=== PATIENT | male | born 1980 | race Caucasian/White ===

== ENCOUNTER 2017-10-26 15:09 | Emergency (ER) | payer OTHER ==
[~2017-10-26] VITALS: Ht 177.8 cm; Wt 105.0 kg
[~2017-10-26 15:09] MED LIST: GLUCOSAMINE &1 EAC1 PO; MELOXICAM7.5 MG PO
[2017-10-26 16:29] LABS: HEMATOCRIT 45.5 % (38.0-50.0); HEMOGLOBIN 16.5 G/DL (12.5-16.6); MCH 32.4 PG (29.0-34.0); MCHC 36.3 G/DL (30.0-36.0); MCV 89.2 FL (86-99); PLATELET COUNT 229 K/uL (156-360); RBC DIS.WIDTH-CV 11.9 % (11.8-14.6); RBC DIS.WIDTH-SD 39.1 % (39-53); WHITE BLOOD COUNT 5.5 K/uL (4.1-10.2)
[2017-10-26 16:40] LABS: ALBUMIN 4.6 g/dL (3.2-4.8); CHLORIDE 108 mEq/L (99-109); POTASSIUM 3.5 mEq/L (3.7-5.4); SODIUM 138 mEq/L (136-147)
[2017-10-26 16:42] LABS: GLUCOSE 131 mg/dL (70-99); TOTAL PROTEIN 7.3 g/dL (6.4-8.3)
[2017-10-26 16:44] LABS: TOTAL BILIRUBIN 0.9 mg/dL (0.0-1.0)
[2017-10-26 16:46] LABS: ALKALINE PHOSPHATASE 58 IU/L (3-129); GFR ESTIMATE (CALCULATED) > 59 mL/min/ (58.99-99999)
[2017-10-26 16:47] LABS: UREA NITROGEN (BUN) 14 mg/dL (9-23)
[2017-10-26 16:48] LABS: AST (GOT) 18 IU/L (2-34)
[2017-10-26 16:49] LABS: ALT (GPT) 29 IU/L (3-49)
[2017-10-26] MEDS ORDERED: ZOFRAN ODT8 MG PO (19:06)
[2017-10-26 19:10] LABS: APPEARANCE SL.HAZY ((CLEAR)); BILIRUBIN NEGATIVE; BLOOD NEGATIVE; COLOR YELLOW ((YELLOW)); GLUCOSE (STRIP) NEGATIVE; KETONES NEGATIVE; LEUKOCYTES NEGATIVE; NITRITE NEGATIVE; PROTEIN (STRIP) 30; SPECIFIC GRAVITY 1.033 (1.000-1.030); UROBILINOGEN 0.2 MG/DL (0.2-1.0)
[2017-10-26 19:29] VITALS: BP 123/90
[2017-10-26 20:08] LABS: BACTERIA NONE SEEN /HPF; EPITHELIAL CELLS NONE SEEN /HPF; MUCUS 4+ /LPF; RED BLOOD CELLS 0-5 /HPF (0-5); WHITE BLOOD CELLS 0-5 /HPF (0-5)
== END 2017-10-26 19:11 | disposition home or self-care (01) ==
LOC: EME 15:09
PROVIDERS: Physician Assistant
DX: R11.2 Nausea with vomiting, unspecified (principal); R19.7 Diarrhea, unspecified; Z72.0 Tobacco use
CPT/HCPCS: 74176; 80053; 81003; 85027; 99281; 99283

== ENCOUNTER → 2018-01-05 | Outpatient (CLI) | payer OTHER ==
[~2018-01-05] VITALS: Ht 177.8 cm; Wt 95.3 kg
[~2018-01-05] MED LIST changes: +CLARITIN,ALAVAR10 MG PO; +FIBER500 MG PO; +NORCO 5/3251 TABLET PO; +PROBIOTIC1 EAC1 PO; +TYLENOL EXTRA500 MG PO; +ZOFRAN ODT8 MG PO
== END | disposition home or self-care (01) ==
LOC: AMB 12:38
DX: K52.9 Noninfective gastroenteritis and colitis, unspecified (principal); K22.10 Ulcer of esophagus without bleeding; Z83.71 Family history of colonic polyps
CPT/HCPCS: J2250; J3010